=== PATIENT | male | born 1955 | race Caucasian/White ===

== ENCOUNTER 2016-08-30 07:21 | Observation (INO) | payer OTHER ==
[~2016-08-30] VITALS: Ht 172.7 cm; Wt 73.5 kg
--- NOTE | ~2016-08-30 | OR ---
Unit #: [id number] #: [id number] Patient: TRISTA CAMACHO [id number] [address] [address] [id number] I MR#: [id number] NAME: TRISTA CAMACHO ROOM: 452 Date of Procedure: 08/30/2016 Admission Date: 08/30/2016 Surgeon: Hollis Robin M.D. : 1955 Attending Physician: Hollis Robin M.D. Primary Care Physician: Rizwan Sawant M.D. OPERATIVE REPORT JOB NOTE: CC: PAIN CENTER PREOPERATIVE DIAGNOSES Intractable pain secondary to postlumbar laminectomy syndrome, post cervical fusion, posttraumatic arthritis. PROCEDURE PERFORMED Placement of epidural catheter for pain pump trial with sedation and fluoroscopic guidance. DESCRIPTION OF PROCEDURE The patient was placed in a seated position. Standard monitors were applied. 2 mg of Versed were given for sedation and anxiolysis, which were adequate. Vital signs remained stable. Sterile prep and drape then of the lumbar area was performed. The skin then at the L4-L5 level was localized with 1% lidocaine. An 18-gauge Paymetrictead needle was then advanced via loss of resistance technique and fluoroscopic guidance in toward the epidural space. The patient did not complain of pain or paresthesia during needle advancement. After confirming proper positioning with fluoroscopy and radiographic contrast, an epidural catheter was threaded easily into the epidural space. The patient had small paresthesia with epidural catheter movement. Contrast injected via the catheter seen to spread in the epidural space. The needle was removed. The catheter was securely fastened using 1/2-inch Steri-Strips and benzoin. The apparatus was sterilely dressed. A dose of 2 mg preservative-free normal saline was injected via the epidural catheter. The patient was then discharged to recovery room in stable condition. Infusion will be started. Dictated by... Hollis Robin M.D. LHP/modl TD: 08/30/2016 11:44 JOB #: [id number] Unit #: [id number] #: [id number] Patient: TRISTA CAMACHO OPERATIVE REPORT Page 1 of 1 X Hollis Robin MD X PROCEDURE OPERATIVE NOTE
--- NOTE | ~2016-08-30 | DS ---
Unit #: [id number] #: [id number] Patient: TRISTA CAAMCHO [id number] [address] [address] [id number] I MR#: [id number] NAME: TRISTA CAMACHO ROOM: 45 Age: 61 Sex: M Admission Date: 08/30/2016 : 1955 Discharge Date: 08/31/2016 Attending Physician: Hollis Robin M.D. Primary Care Physician: Rizwan Sawant M.D. DISCHARGE SUMMARY HISTORY The patient is a 61-year-old male put in observation following placement of an epidural catheter for a pain pump trial. 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 He failed to maintain adequate control with oral medications alone, and he is no longer a surgical candidate. The decision was made to give a trial of spinal narcotics. After placing a catheter in the epidural space in the O.R. and blousing it with 2 mg of preservative free morphine, the patient was started on an infusion rate of 0.2 mg per day. With this rate he has gotten greater than 50% improvement of his symptom complex as compared to that while he was actually on his patch and his Percocet for breakthrough pain. This improvement is with no supplemental narcotics at all. This final rate of 0.2 mg per hour of preservative free morphine will be used to calculate the doses that he will be started on with his final pump implantation. Plan is to discharge the patient home and then come back as an outpatient for pump placement. DISCHARGE DIAGNOSES Intractable pain due to post cervical fusion syndrome, post laminectomy syndrome and post traumatic arthritis. SECONDARY DIAGNOSES 1. Anxiety. 2. Chronic obstructive pulmonary disease. 3. Hiatal hernia. 4. Osteoarthritis. Dictated by... Veronica Zurita/debbi TD: 08/31/2016 16:21 JOB #: [id number] Unit #: [id number] #: [id number] Patient: TRISTA CAMACHO DISCHARGE SUMMARY Page 1 of 1 X Hollis Robin MD X DISCHARGE SUMMARY
--- NOTE | ~2016-08-30 | EKG ---
PATIENT: TRISTA CAMACHO UNIT #: [id number] Ventricular Rate: 63 BPM Atrial Rate: 63 BPM P-R Interval: 188 ms QRS Duration: 94 ms Q-T Interval: 424 ms QTC Calculation(Bezet): 433 ms P [place]: 38 degrees Calculated R [place]: 21 degrees Calculated T [place]: 36 degrees Diagnosis Line: Normal sinus rhythm Diagnosis Line: Normal ECG Diagnosis Line: No previous ECGs available Diagnosis Line: Confirmed by GARETT BARFIELD MD ([id number]) on Diagnosis Line: 08/30/2016 9:37:33 AM INTERPRETING MD: CAROLYNE COLÓN
[~2016-08-30 07:21] MED LIST: ALBUTEROL20 ml INH; AMBIEN10 MG PO; ASPIRIN81 M2 PO; BREO ELLIPTA 11 EACH INH; CLOPIDOGREL75 MG PO; FENTANYL1 EAC7 TD; IRON325 MG; KLONOPIN2 MG PO; LIPITOR40 MG PO; LYRICA300 MG PO; OXYCODONE-ACET1 EAC1 PO; OXYGEN; PROTONIX PO; SPIRIVA RESPIMAT4 G1 INH; VITAMIN D32000 UNIT PO
[2016-09-24] MEDS ORDERED: INCRUSE ELLI62.5 MCG INH (11:25)
== END 2016-08-31 16:33 | disposition home or self-care (01) | DRG 552 ==
LOC: CSUR 07:21 → CPACUOF 09:08 → C4B 09:08
PROVIDERS: Pain Medicine Pain Medicine
PROC: 00HU03Z Insertion of Infusion Device into Spinal Canal, Open Approach (ICD-10-PCS; principal; 2016-08-30 09:00)
DX: M96.1 Postlaminectomy syndrome, not elsewhere classified (principal); M16.50 Unilateral post-traumatic osteoarthritis, unspecified hip; M54.16 Radiculopathy, lumbar region; Z98.1 Arthrodesis status; F41.9 Anxiety disorder, unspecified; K21.9 Gastro-esophageal reflux disease without esophagitis; J43.9 Emphysema, unspecified; F17.200 Nicotine dependence, unspecified, uncomplicated; Z88.8 Allergy status to other drugs, medicaments and biological substances
CPT/HCPCS: 76001; 93005; 94640; 94664; 94760; 94761; G0378; J0690; J2250; J2274; J3370

== ENCOUNTER → 2016-09-27 | Day surgery (SDC) | payer OTHER ==
[~2016-09-27] MED LIST changes: +INCRUSE ELLI62.5 MCG INH
--- NOTE | ~2016-09-27 | EKG ---
PATIENT: TRISTA CAMACHO UNIT #: [id number] Ventricular Rate: 68 BPM Atrial Rate: 68 BPM P-R Interval: 186 ms QRS Duration: 96 ms Q-T Interval: 410 ms QTC Calculation(Bezet): 435 ms P [place]: 54 degrees Calculated R [place]: 33 degrees Calculated T [place]: 56 degrees Diagnosis Line: Normal sinus rhythm Diagnosis Line: Normal ECG Diagnosis Line: When compared with ECG of 30-AUG-2016 08:13, Diagnosis Line: No significant change was found Diagnosis Line: Confirmed by YOSELYN DELGADO MD ([id number]) on 09/27/2016 Diagnosis Line: 6:29:09 PM INTERPRETING MD: SANDY COLÓN
--- NOTE | ~2016-09-27 | OR ---
Unit #: [id number] #: [id number] Patient: TRISTA CAMACHO [id number] [address] [place], [place] [address] [id number] MR#: [id number] NAME: TRISTA CAMACHO ROOM: Date of Procedure: 09/27/2016 Admission Date: 09/27/2016 Surgeon: Hollis Robin M.D. : 1955 Attending Physician: Hollis Robin M.D. Primary Care Physician: Rizwan Sawant M.D. OPERATIVE REPORT JOB NOTE: CC: PAIN CENTER PREOPERATIVE DIAGNOSES Intractable pain, failed back surgery syndrome, failed neck surgery syndrome. POSTOPERATIVE DIAGNOSES Intractable pain, failed back surgery syndrome, failed neck surgery syndrome. PROCEDURES PERFORMED Placement of intrathecal catheter, placement of programmable intrathecal pain pump. ANESTHESIA General, preoperative antibiotics protocol, Ancef and vancomycin. ESTIMATED BLOOD LOSS 10 mL. DESCRIPTION OF PROCEDURE The patient was placed under general anesthetic and then in a left lateral decubitus position with a beanbag. Pressure points were padded. The patient was sterilely prepped and then draped. The skin just to the right of midline at the L1-L2 level was localized with 0.5% Marcaine with epinephrine. Sharp and Bovie dissection were used to dissect down to the paraspinous space. An 18-gauge introducer needle was then advanced with one pass into the intrathecal space. Clear CSF was obtained. The catheter was easily threaded, so the distal tip was at cephalad portion of T12 vertebra vertebral body. The stylet was removed and clear CSF was seen at the distal end. The catheter was then securely fastened using the butterfly anchor system and 2-0 silk suture. The patient's right upper quadrant was then localized with 0.5% Marcaine with epinephrine. Sharp and Bovie dissection were used to create a properly sized pump pocket. Once this was properly sized, the catheter was threaded back to the pump pocket area. 38 cm of catheter was trimmed from the distal end and the connector was attached. This was then attached to a 40 mL Medtronic SynchroMed pump. This was secured into the pump pocket using three 2-0 silk sutures. The excess catheter was coiled under the pump. The wound was copiously irrigated and then closed in 2 layers with 2-0 Vicryl. The skin was closed with raymon. The back wound was then also irrigated. Subcutaneous tissue was closed with 2-0 Vicryl and the skin with raymon. Unit #: [id number] #: [id number] Patient: TRISTA CAMACHO Sterile dressings were applied. The patient's morphine is 5 mg/mL to be started a daily dose of 0.5 mg per day with an initiation of bolus 0.2 mg. WearYouWanttronic catheter was lot #[id number], SynchroMed II 40 mL pump serial #[id number], [employer] personal occ therapy asst serial #[id number]. Dictated by... Veronica Zurita/rosita TD: 09/27/2016 12:08 JOB #: [id number] OPERATIVE REPORT Page 1 of 1 X Hollis Robin MD X PROCEDURE OPERATIVE NOTE
[2016-09-27 07:40] LABS: HEMOGLOBIN 14.6 gm/dL (13.0-16.0); MEAN CELL VOLUME 89.6 FL (83-96); MEAN CORPUSCULAR HEMOGLOBIN 31.1 PG (28-34); MEAN CORPUSCULAR HGB CONC 34.7 g/dL (30-36); MEAN PLATELET VOLUME 8.8 FL (6.5-11.5); RED BLOOD COUNT 4.69 X10e (3.90-5.60); RED CELL DISTRIBUTION WIDTH 13.5 % (11.0-15.5); WHITE BLOOD COUNT 6.8 X10e3 (4.0-10.5)
== END | disposition home or self-care (01) ==
LOC: CSUR 06:53
PROVIDERS: Pain Medicine Pain Medicine
DX: M96.1 Postlaminectomy syndrome, not elsewhere classified (principal); I25.2 Old myocardial infarction; J43.9 Emphysema, unspecified; K21.9 Gastro-esophageal reflux disease without esophagitis; F17.210 Nicotine dependence, cigarettes, uncomplicated; Z98.61 Coronary angioplasty status; Z87.01 Personal history of pneumonia (recurrent); Z88.8 Allergy status to other drugs, medicaments and biological substances
CPT/HCPCS: 76000; 85027; 93005; C1772; J0690; J1170; J1720; J2250; J3010; J3370